=== PATIENT | female | born 1950 | race Caucasian/White ===

== ENCOUNTER 2022-01-29 13:21 | Emergency (ER) | payer MEDICARE, BC ==
[~2022-01-29] VITALS: Ht 165.1 cm; Wt 86.4 kg
[2022-01-29 13:27] VITALS: BP 135/85
[2022-01-29 14:15] LABS: BASOPHILS % (AUTO) 0.9 % (0-1); EOSINOPHILS # (AUTO) 0.1 X10'3 (0-0.9); HEMATOCRIT 37.8 % (35.0-45.0); LYMPHOCYTES # (AUTO) 1.1 X10'3 (1.1-4.8); LYMPHOCYTES % (AUTO) 19.2 % (21-51); MEAN CORPUSCULAR HEMOGLOBIN 26.7 PG (27.0-31.0); MEAN CORPUSCULAR HGB CONC 31.8 g/dL (33.0-36.5); MEAN CORPUSCULAR VOLUME 84.1 FL (78-98); MEAN PLATELET VOLUME 7.9 FL (7.4-10.4); MONOCYTES # (AUTO) 0.7 X10'3 (0-0.9); MONOCYTES % (AUTO) 12.3 % (2-12); NEUTROPHILS # (AUTO) 3.7 X10'3 (1.8-7.7); NEUTROPHILS % (AUTO) 65.6 % (42-75); PLATELET COUNT 185 X10'3 (140-440); WHITE BLOOD COUNT 5.6 X10'3 (4.5-11.0)
[2022-01-29 14:33] LABS: ALANINE AMINOTRANSFERASE 20 U/L (12-78); ALBUMIN 3.5 G/DL (3.4-5.0); ALBUMIN/GLOBULIN RATIO 1.2 (1.1-1.5); ALKALINE PHOSPHATASE 97 IU/L (46-116); ANION GAP 6 (8-16); ASPARTATE AMINO TRANSFERASE 20 U/L (10-37); BILIRUBIN,TOTAL 0.3 MG/DL (0.1-1.0); BLOOD UREA NITROGEN 25 MG/DL (7-18); BUN/CREATININE RATIO 20.7 (6.6-38.0); CALCIUM 8.4 MG/DL (8.5-10.1); CHLORIDE 103 MMOL/L (99-107); CREATININE 1.21 MG/DL (0.40-0.90); GLUCOSE 87 MG/DL (70-104); POTASSIUM 4.2 MMOL/L (3.5-5.1); SODIUM 139 MMOL/L (135-145); TOTAL CARBON DIOXIDE 30.2 MMOL/L (24-32); TOTAL PROTEIN 6.5 G/DL (6.4-8.2); eGFR 44 ML/MIN
== END 2022-01-29 21:29 | disposition left against medical advice (07) ==
LOC: ER 13:21
DX: R07.9 Chest pain, unspecified (principal); Z53.21 Procedure and treatment not carried out due to patient leaving prior to being seen by health care provider
CPT/HCPCS: 36415; 71045; 80053; 83880; 84484; 85025; 93005

== ENCOUNTER 2023-01-23 14:00 | Day surgery (SDC) | payer OTHER ==
[~2023-01-23] VITALS: Ht 165.1 cm; Wt 81.9 kg
[2023-01-23] VITALS (18 sets, daily range): BP systolic 120–177; BP diastolic 72–114
[2023-01-23] MEDS ORDERED: MIDAZolam 1mg/ml 10ml vial IV ONE (14:20)
[2023-01-23] MEDS ORDERED: normal saline 1000ml 1,000 ML IV SCH (14:20)
[2023-01-23] MEDS ORDERED: fentaNYL/PF 50MCG/1 ML 2ML syringe IV ONE (14:20)
[2023-01-23] MEDS ORDERED: LORA10CA PO (14:40)
[2023-01-23] MEDS ORDERED: ONDA8TAB13 PO (14:40)
[2023-01-23] MEDS ORDERED: OXYC-150 PO (14:40)
[2023-01-23] MEDS ORDERED: FLUT1BLS4 INH (14:40)
[2023-01-23] MEDS ORDERED: [UNRECOGNIZED DRUG - MIXTURE] PO (14:40)
[2023-01-23] MEDS ORDERED: ATOR10TA87 PO (14:40)
[2023-01-23] MEDS ORDERED: prevagen PO (14:40)
[2023-01-23] MEDS ORDERED: PANT40TA54 PO (14:40)
[2023-01-23] MEDS ORDERED: TIOT4MIS5 INH (14:40)
[2023-01-23] MEDS ORDERED: MULT-955 PO (14:40)
[2023-01-23] MEDS ORDERED: [UNRECOGNIZED DRUG - OTHER] PO (14:40)
== END 2023-01-23 18:00 | disposition home or self-care (01) ==
LOC: SSTAY O 14:00
PROVIDERS: ATTEND Student in an Organized Health Care Education/Training Program
DX: I48.0 Paroxysmal atrial fibrillation (principal); J44.9 Chronic obstructive pulmonary disease, unspecified; I10 Essential (primary) hypertension; E78.5 Hyperlipidemia, unspecified; M81.0 Age-related osteoporosis without current pathological fracture; I70.203 Unspecified atherosclerosis of native arteries of extremities, bilateral legs; I31.2 Hemopericardium, not elsewhere classified; Z87.891 Personal history of nicotine dependence; Z88.8 Allergy status to other drugs, medicaments and biological substances; Z90.2 Acquired absence of lung [part of]; Z85.118 Personal history of other malignant neoplasm of bronchus and lung; Z85.841 Personal history of malignant neoplasm of brain; Z98.890 Other specified postprocedural states
CPT/HCPCS: 93312; 93325; 94760; J2250; J3010; J7030; A4620

== ENCOUNTER → 2023-02-03 | Outpatient (CLI) | payer OTHER ==
[~2023-02-03] MED LIST: ATOR10TA87 PO; FLUT1BLS4 INH; IODIXANOL 320 MG/ML INFUS..BTL 100ML IV ONE; LORA10CA PO; MULT-955 PO; ONDA8TAB13 PO; OXYC-150 PO; PANT40TA54 PO; TIOT4MIS5 INH; [UNRECOGNIZED DRUG - MIXTURE] PO; [UNRECOGNIZED DRUG - OTHER] PO; prevagen PO
[2023-02-03 09:04] LABS: BASOPHILS % (AUTO) 0.9 % (0-1); EOSINOPHILS # (AUTO) 0.1 X10'3 (0-0.9); EOSINOPHILS % (AUTO) 1.2 % (0-6); LYMPHOCYTES # (AUTO) 1.1 X10'3 (1.1-4.8); LYMPHOCYTES % (AUTO) 21.4 % (21-51); MEAN CORPUSCULAR HEMOGLOBIN 25.2 PG (27.0-31.0); MEAN CORPUSCULAR HGB CONC 31.6 g/dL (33.0-36.5); MEAN CORPUSCULAR VOLUME 79.7 FL (78-98); MEAN PLATELET VOLUME 7.8 FL (7.4-10.4); MONOCYTES # (AUTO) 0.6 X10'3 (0-0.9); MONOCYTES % (AUTO) 11.5 % (2-12); NEUTROPHILS # (AUTO) 3.3 X10'3 (1.8-7.7); PLATELET COUNT 183 X10'3 (140-440); RED BLOOD COUNT 4.77 X10'6 (4.20-5.60); RED CELL DISTRIBUTION WIDTH 20.1 % (11.5-14.5)
[2023-02-03 09:19] LABS: ALANINE AMINOTRANSFERASE 19 U/L (12-78); ALBUMIN 3.7 G/DL (3.4-5.0); ALBUMIN/GLOBULIN RATIO 1.1 (1.1-1.5); ALKALINE PHOSPHATASE 104 IU/L (46-116); ANION GAP 5 (8-16); ASPARTATE AMINO TRANSFERASE 29 U/L (10-37); BILIRUBIN,TOTAL 0.3 MG/DL (0.1-1.0); BLOOD UREA NITROGEN 23 MG/DL (7-18); CHLORIDE 102 MMOL/L (99-107); GLUCOSE 94 MG/DL (70-104); POTASSIUM 3.9 MMOL/L (3.5-5.1); SODIUM 138 MMOL/L (135-145); TOTAL CARBON DIOXIDE 30.9 MMOL/L (24-32); TOTAL PROTEIN 7.2 G/DL (6.4-8.2); eGFR 54 ML/MIN
[2023-02-03 10:48] LABS: ANISOCYTOSIS 3+; ELLIPTOCYTES FEW; MICROCYTOSIS 1+; PLATELET ESTIMATE NORMAL; TEAR DROP CELLS FEW
== END | disposition home or self-care (01) ==
LOC: RAD 08:26
PROVIDERS: ATTEND Student in an Organized Health Care Education/Training Program
DX: K76.0 Fatty (change of) liver, not elsewhere classified (principal); I48.91 Unspecified atrial fibrillation; J90 Pleural effusion, not elsewhere classified; I25.10 Atherosclerotic heart disease of native coronary artery without angina pectoris; I70.0 Atherosclerosis of aorta; Z90.2 Acquired absence of lung [part of]; Z98.890 Other specified postprocedural states
CPT/HCPCS: 36415; 75572; 80053; 85008; 85025; J3490; Q9967

== ENCOUNTER 2023-05-28 07:46 | Outpatient (CLI) | payer OTHER ==
[~2023-05-28 07:46] MED LIST changes: -IODIXANOL 320 MG/ML INFUS..BTL 100ML IV ONE
[2023-05-28 10:22] LABS: ALBUMIN 3.6 G/DL (3.4-5.0); ANION GAP 7 (8-16); BLOOD UREA NITROGEN 27 MG/DL (7-18); BUN/CREATININE RATIO 25.7 (10.0-20.0); CHLORIDE 102 MMOL/L (99-107); CREATININE 1.05 MG/DL (0.40-0.90); GLUCOSE 78 MG/DL (70-104); SODIUM 138 MMOL/L (135-145); TOTAL CARBON DIOXIDE 28.6 MMOL/L (24-32); eGFR 51 ML/MIN
[2023-05-28] MEDS ORDERED: iohexol 350MG/ML 100ml bottle IV ONE (10:38)
== END 2023-05-28 23:59 | disposition home or self-care (01) ==
LOC: RAD 07:46
PROVIDERS: ATTEND Internal Medicine Cardiovascular Disease
DX: K76.0 Fatty (change of) liver, not elsewhere classified (principal); I25.10 Atherosclerotic heart disease of native coronary artery without angina pectoris; I70.0 Atherosclerosis of aorta; I35.8 Other nonrheumatic aortic valve disorders; I48.91 Unspecified atrial fibrillation; Z91.89 Other specified personal risk factors, not elsewhere classified; Z95.818 Presence of other cardiac implants and grafts; Z98.890 Other specified postprocedural states
CPT/HCPCS: 36415; 75572; 80048; J3490; Q9967

== ENCOUNTER 2023-07-18 18:05 | Emergency (ER) | payer OTHER ==
[~2023-07-18] VITALS: Ht 165.1 cm; Wt 84.1 kg
[2023-07-18 18:30] VITALS: TEMP 97.8
[2023-07-18 21:18] VITALS: BP 168/89; PULSE 62; RESP 14; O2SAT 96
== END 2023-07-18 22:11 | disposition home or self-care (01) ==
LOC: ER 18:06
DX: S90.32XA Contusion of left foot, initial encounter (principal); Z88.8 Allergy status to other drugs, medicaments and biological substances; Z79.899 Other long term (current) drug therapy; X58.XXXA Exposure to other specified factors, initial encounter; Y93.89 Activity, other specified; Y92.89 Other specified places as the place of occurrence of the external cause; Y99.8 Other external cause status
CPT/HCPCS: 73630; 99283